=== PATIENT | male | born 1960 | race American Indian/Alaskan Native ===

== ENCOUNTER 2018-02-19 17:03 | Emergency (ER) | payer OTHER ==
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
[2018-02-19] MEDS: NORCO 5/325 PO ONE ×2 (21:22→22:29)
[2018-02-19] MEDS: ZOFRAN ODT PO ONE ×2 (21:22→22:29)
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
[2018-02-19 22:31] VITALS: BP 134/90
== END 2018-02-19 22:31 | disposition home or self-care (01) ==
LOC: ED 17:03
DX: M25.552 Pain in left hip (principal)
CPT/HCPCS: 72040; 99283; Q0162